=== PATIENT | female | born 1965 | race Hispanic/Latino ===

== ENCOUNTER → 2023-05-23 | Outpatient (CLI) | payer MEDICAID ==
[~2023-05-23] MED LIST: AMLO2.5T4 PO; ARIP15TA18 PO; INSLAN SQ; LACO100T4 PO; LACT10SO95 PO; LEVE750T4 PO; NUT.237L52 PO; OLAN15TA36 PO; PHEN100O5 PO; POTA10CA85 PO; TRAM50TA4 PO; TRAZ-187 PO; VALP250S5 PO
== END | disposition home or self-care (01) ==
LOC: SHCH 13:04
PROVIDERS: ATTEND Student in an Organized Health Care Education/Training Program
DX: I70.293 Other atherosclerosis of native arteries of extremities, bilateral legs (principal); R06.02 Shortness of breath
CPT/HCPCS: 93306; 93925